=== PATIENT | female | born 1965 | race Caucasian/White ===

== ENCOUNTER 2019-08-21 15:58 | Emergency (ER) | payer MEDICAID, SELFPAY ==
[2019-08-21 16:05] VITALS: BMI 34.5
--- NOTE | 2019-08-21 16:09 | ECG_ITS ---
[facility] Test Date: 2019-08-21 Pat Name: Alaina Aguirre Department: Room: Gender: Female Director Learning And Development: : 1965 Requested By: Nick Manzano Order Number: [id number] Little MD: Tania Ruvalcaba M.D. Measurements Intervals [place] Rate: 54 P: 56 DC: 216 QRS: 33 QRSD: 100 T: 50 QT: 383 QTc: 365 Interpretive Statements SINUS BRADYCARDIA WITH SINUS ARRHYTHMIA WITH FIRST DEGREE AV BLOCK POSSIBLE RIGHT VENTRICULAR CONDUCTION DELAY [RSR (QR) IN V1/V2] Compared to ECG 05/18/2014 17:39:59 No significant changes Electronically Signed On 08-22-2019 17:10:15 CDT by Tania Ruvalcaba M.D. [email or web address] county [email or web address]/[id number] f
[2019-08-21 16:10] VITALS: BP 146/97; PULSE 60; RESP 18; TEMP 36.6; O2SAT 99
--- NOTE | 2019-08-21 17:14 | W.ED.CHESTPA ---
Documented by User: Nick Craig DO 08/22/19 14:31 HPI - Chest Pain General: Chief Complaint: Chest Pain Stated Complaint: cp Time Seen by Provider: 08/21/19 16:09 History of Present Illness: HPI narrative: 54-year-old female presents to the ER complaining of chest pain that started yesterday's been not really been exertional she had been moving some boards around the house is very reproducible with palpation along the left side of her sternal border she is slightly short of breath. She cannot recall any other issues she has no known history of coronary artery disease she is not previously had any chest pain with exertion. complaint: chest pain Onset (ago): day(s) (4) Timing of current episode: constant Prior episodes: No Onset: during rest Pain location: left chest and parasternal Pain radiation: none Severity: moderate Quality: sharp Relieving factors: rest Exacerbating factors: palpation (Pain is completely reproducible with palpation along the upper portion of the sternum and the right sternal border) Associated symptoms: Reports no associated symptoms; Deny abdominal pain, dyspnea, fever(s), nausea or vomiting Treatment prior to arrival: none Review of Systems Const: Denies: fever(s), chills, body aches, change in appetite, fatigue or malaise ENMT: Denies: throat pain, ear or mastoid pain, nasal discharge or nasal congestion Card: Denies: chest pain, edema, dyspnea on exertion or orthopnea Resp: Denies: dyspnea, productive cough or non-productive cough GI: Denies: abdominal pain, nausea, vomiting, hematemesis, coffee ground emesis, diarrhea, constipation, bloating, hematochezia or melena : Denies: flank pain, difficulty voiding, dysuria, urinary frequency or urinary urgency Skin/Breast: Denies: rash or pruritus PFSH ED PFSH: Medical History (Updated 08/21/19 @ 18:44 by Ale David MD) Closed left forearm fracture Diabetes mellitus Osteoarthritis Surgical History (Updated 08/21/19 @ 17:18 by Nick Craig DO) H/O tubal ligation H/O: hysterectomy History of cholecystectomy Hx of appendectomy Social History Smoking and tobacco status: current every day smoker Physical Exam Const: COMMON NORMALS: no acute distress GENERAL APPEARANCE: cooperative and comfortable ORIENTATION/CONSCIOUSNESS: Yes awake, Yes oriented to person, Yes oriented to place and Yes oriented to time HENMT: COMMON NORMALS: normocephalic, atraumatic, hearing grossly normal bilaterally, external ears normal, EAC's normal, TM's normal bilaterally, Normal nasal mucous membranes and turbinates present, moist oral mucous membranes and oropharynx normal HEAD & SCALP: normocephalic and atraumatic NOSE: Normal nasal mucous membranes and turbinates present EXTERNAL EAR: Yes external ears normal EXTERNAL AUDITORY CANAL: EAC's normal TYMPANIC MEMBRANE: TM's normal bilaterally Eye: COMMON NORMALS: Equal, round and reactive pupils present, EOMs intact bilaterally, conjunctivae normal and no scleral icterus CONJUNCTIVA: Yes conjunctivae normal PUPIL: Yes Equal, round and reactive pupils present Neck/C-Spine: COMMON NORMALS: full ROM, no lymphadenopathy, supple and no JVD Lymph: LYMPHATIC: no lymphadenopathy noted and no lymphedema noted Chest: CHEST: Yes localized rib tenderness with anteroposterior compression (Right side of the upper sternum and sternum itself reproducible pain re-creating the pain that precipitated today's visit) Resp: COMMON NORMALS: normal respiratory effort, No retractions, No use of accessory muscles and clear to auscultation bilaterally AUSCULTATION: clear to auscultation bilaterally Cardio: COMMON NORMALS: no JVD, regular rate, regular rhythm and No murmurs present (Cardio) RATE: regular rate RHYTHM: regular rhythm GI: COMMON NORMALS: Soft to palpation and No hepatosplenomegaly present AUSCULTATION: Yes normoactive bowel sounds PALPATION: Yes Soft to palpation, No Tenderness to palpation present (GI), No Guarding due to palpation present (GI) and Yes No hepatosplenomegaly present Extremity: COMMON NORMALS: normal to inspection, capillary refill normal, no clubbing, cyanosis or edema, no calf tenderness and no pedal edema Neuro: SENSORIUM/ORIENTATION: Yes oriented to person, Yes oriented to place and Yes oriented to time Skin: COMMON NORMALS: no rashes or lesions noted GENERAL SKIN EXAM: no rashes or lesions noted Course Vital Signs: Vital signs: Vital Signs Temperature 98 F 08/21/19 16:10 Pulse Rate 70 08/21/19 18:52 Respiratory Rate 14 08/21/19 18:52 Blood Pressure 136/81 08/21/19 18:52 Pulse Oximetry 98 08/21/19 18:52 MDM - Chest Pain MDM Narrative: Medical decision making narrative: Care turned over to Dr. David at change of shift Lab Data: Labs: Lab Results 08/21/19 08/21/19 08/21/19 Range/Units 17:20 17:20 17:20 WBC (4.0-10.0) 10^3/ uL RBC (4.1-5.3) 10^6/u L Hgb (11.5-15.3) g/dL Hct (37.0-47.0) % MCV (81-99) fL MCH (28.0-34.0) pg MCHC (30.0-36.0) g/dL RDW (12.1-15.1) % Plt Count (130-400) 10^3/c mm MPV (7.4-10.4) fL Neut % (Auto) % Lymph % (Auto) % [place] % (Auto) % Eos % (Auto) % Baso % (Auto) % Neut # (Auto) (1.8-7.7) 10^3/u L Lymph # (Auto) (0.8-4.8) 10^3/u L [place] # (Auto) (0.2-0.9) 10^3/u L Eos # (Auto) (0.0-0.8) 10^3/u L Baso # (Auto) (0.0-0.1) 10^3/u L Nucleated RBC % (a uto) % Nucleated RBCs # /100WBC PT 12.80 (10.5-13.3) SECO NDS INR 0.93 (0.8-1.2) APTT (23.9-36.7) SECO NDS Sodium 138 (136-145) mmol/L Potassium 4.2 (3.5-5.1) mmol/L Chloride 102 (98-107) mmol/L Carbon Dioxide 24 (22-29) mmol/L Anion Gap 16.2 (5-19) BUN 14 (6-20) mg/dL Creatinine 0.7 (0.5-0.9) mg/dL GFR Calculation 86.9 L (90-130) mL/min Glucose 95 (65-115) mg/dL Calculated Osmolal ity 282 L (285-295) mOsm/k g Calcium 9.7 (8.5-10.5) mg/dL Total Bilirubin 0.4 (0.15-1.2) mg/dL AST 22 (0-32) U/L ALT 28 (0-33) U/L Alkaline Phosphata se 102 (35-105) IU/L Troponin T Baselin e 6 (0-10) ng/L Total Protein 7.4 (6.6-8.7) g/dL Albumin 4.3 (3.5-5.2) g/dL Globulin 3.1 (1.3-4.6) g/dL 08/21/19 08/21/19 Range/Units 17:20 17:20 WBC 9.2 (4.0-10.0) 10^3/ uL RBC 4.59 (4.1-5.3) 10^6/u L Hgb 13.3 (11.5-15.3) g/dL Hct 43.1 (37.0-47.0) % MCV 93.9 (81-99) fL MCH 29.0 (28.0-34.0) pg MCHC 30.9 (30.0-36.0) g/dL RDW 13.4 (12.1-15.1) % Plt Count 198 (130-400) 10^3/c mm MPV 11.6 H (7.4-10.4) fL Neut % (Auto) 60.8 % Lymph % (Auto) 28.3 % [place] % (Auto) 5.7 % Eos % (Auto) 4.2 % Baso % (Auto) 0.8 % Neut # (Auto) 5.6 (1.8-7.7) 10^3/u L Lymph # (Auto) 2.6 (0.8-4.8) 10^3/u L [place] # (Auto) 0.5 (0.2-0.9) 10^3/u L Eos # (Auto) 0.4 (0.0-0.8) 10^3/u L Baso # (Auto) 0.1 (0.0-0.1) 10^3/u L Nucleated RBC % (a uto) 0 % Nucleated RBCs # 0.0 /100WBC PT (10.5-13.3) SECO NDS INR (0.8-1.2) APTT 29.8 (23.9-36.7) SECO NDS Sodium (136-145) mmol/L Potassium (3.5-5.1) mmol/L Chloride (98-107) mmol/L Carbon Dioxide (22-29) mmol/L Anion Gap (5-19) BUN (6-20) mg/dL Creatinine (0.5-0.9) mg/dL GFR Calculation (90-130) mL/min Glucose (65-115) mg/dL Calculated Osmolal ity (285-295) mOsm/k g Calcium (8.5-10.5) mg/dL Total Bilirubin (0.15-1.2) mg/dL AST (0-32) U/L ALT (0-33) U/L Alkaline Phosphata se (35-105) IU/L Troponin T Baselin e (0-10) ng/L Total Protein (6.6-8.7) g/dL Albumin (3.5-5.2) g/dL Globulin (1.3-4.6) g/dL Discharge Plan Discharge Patient Disposition: Home, Self-Care Clinical Impression: Atypical chest pain Condition: Stable Prescriptions: New Naprosyn 500 mg tablet 500 mg PO BID PRN (Reason: pain) Qty: 20 RF: 0 No Action [place] 10-325 mg Tablet 1 tab PO TID PRN (Reason: Pain) RF: 0 gabapentin 100 mg Capsule 100 mg PO BID RF: 0 Januvia 25 mg Tablet 25 mg PO DAILY RF: 0 Discharge Orders: Discharge Order (Routine); Ordered 08/21/19 Ordered By: Ale David Discharge Diet: Advance as tolerated Discharge Activity: Resume usual activity Patient Instructions: Chest Pain (ED) Discharge Date/Time: 08/21/19 18:53 Coding Level of Care Code ED Data Collection Technician for Chg Fwd Exam Comprehensive Documented by User: Ale David MD 08/21/19 18:58 HPI - Chest Pain General: Chief Complaint: Chest Pain Stated Complaint: cp Time Seen by Provider: 08/21/19 16:09 PFSH ED PFSH: Medical History (Updated 08/21/19 @ 18:44 by Ale David MD) Closed left forearm fracture Diabetes mellitus Osteoarthritis Surgical History (Updated 08/21/19 @ 17:18 by Nick Craig DO) H/O tubal ligation H/O: hysterectomy History of cholecystectomy Hx of appendectomy Social History Smoking and tobacco status: current every day smoker Course Vital Signs: Vital signs: Vital Signs Temperature 98 F 08/21/19 16:10 Pulse Rate 70 08/21/19 18:52 Respiratory Rate 14 08/21/19 18:52 Blood Pressure 136/81 08/21/19 18:52 Pulse Oximetry 98 08/21/19 18:52 MDM - Chest Pain MDM Narrative: Medical decision making narrative: I took patient over from Dr. Martell. Patient does have point tenderness on exam consistent with chest wall pain. Patient initial troponin here is negative and x-ray is normal as well. Will place patient on Naprosyn and she is stable for discharge. She is currently pain-free and has no signs of pulmonary embolism. She has no signs of cardiac cause. She is to follow-up with her primary care doctor in 3 to 5 days return if worsening. Lab Data: Labs: Lab Results 08/21/19 08/21/19 08/21/19 Range/Units 17:20 17:20 17:20 WBC (4.0-10.0) 10^3/ uL RBC (4.1-5.3) 10^6/u L Hgb (11.5-15.3) g/dL Hct (37.0-47.0) % MCV (81-99) fL MCH (28.0-34.0) pg MCHC (30.0-36.0) g/dL RDW (12.1-15.1) % Plt Count (130-400) 10^3/c mm MPV (7.4-10.4) fL Neut % (Auto) % Lymph % (Auto) % [place] % (Auto) % Eos % (Auto) % Baso % (Auto) % Neut # (Auto) (1.8-7.7) 10^3/u L Lymph # (Auto) (0.8-4.8) 10^3/u L [place] # (Auto) (0.2-0.9) 10^3/u L Eos # (Auto) (0.0-0.8) 10^3/u L Baso # (Auto) (0.0-0.1) 10^3/u L Nucleated RBC % (a uto) % Nucleated RBCs # /100WBC PT 12.80 (10.5-13.3) SECO NDS INR 0.93 (0.8-1.2) APTT (23.9-36.7) SECO NDS Sodium 138 (136-145) mmol/L Potassium 4.2 (3.5-5.1) mmol/L Chloride 102 (98-107) mmol/L Carbon Dioxide 24 (22-29) mmol/L Anion Gap 16.2 (5-19) BUN 14 (6-20) mg/dL Creatinine 0.7 (0.5-0.9) mg/dL GFR Calculation 86.9 L (90-130) mL/min Glucose 95 (65-115) mg/dL Calculated Osmolal ity 282 L (285-295) mOsm/k g Calcium 9.7 (8.5-10.5) mg/dL Total Bilirubin 0.4 (0.15-1.2) mg/dL AST 22 (0-32) U/L ALT 28 (0-33) U/L Alkaline Phosphata se 102 (35-105) IU/L Troponin T Baselin e 6 (0-10) ng/L Total Protein 7.4 (6.6-8.7) g/dL Albumin 4.3 (3.5-5.2) g/dL Globulin 3.1 (1.3-4.6) g/dL 08/21/19 08/21/19 Range/Units 17:20 17:20 WBC 9.2 (4.0-10.0) 10^3/ uL RBC 4.59 (4.1-5.3) 10^6/u L Hgb 13.3 (11.5-15.3) g/dL Hct 43.1 (37.0-47.0) % MCV 93.9 (81-99) fL MCH 29.0 (28.0-34.0) pg MCHC 30.9 (30.0-36.0) g/dL RDW 13.4 (12.1-15.1) % Plt Count 198 (130-400) 10^3/c mm MPV 11.6 H (7.4-10.4) fL Neut % (Auto) 60.8 % Lymph % (Auto) 28.3 % [place] % (Auto) 5.7 % Eos % (Auto) 4.2 % Baso % (Auto) 0.8 % Neut # (Auto) 5.6 (1.8-7.7) 10^3/u L Lymph # (Auto) 2.6 (0.8-4.8) 10^3/u L [place] # (Auto) 0.5 (0.2-0.9) 10^3/u L Eos # (Auto) 0.4 (0.0-0.8) 10^3/u L Baso # (Auto) 0.1 (0.0-0.1) 10^3/u L Nucleated RBC % (a uto) 0 % Nucleated RBCs # 0.0 /100WBC PT (10.5-13.3) SECO NDS INR (0.8-1.2) APTT 29.8 (23.9-36.7) SECO NDS Sodium (136-145) mmol/L Potassium (3.5-5.1) mmol/L Chloride (98-107) mmol/L Carbon Dioxide (22-29) mmol/L Anion Gap (5-19) BUN (6-20) mg/dL Creatinine (0.5-0.9) mg/dL GFR Calculation (90-130) mL/min Glucose (65-115) mg/dL Calculated Osmolal ity (285-295) mOsm/k g Calcium (8.5-10.5) mg/dL Total Bilirubin (0.15-1.2) mg/dL AST (0-32) U/L ALT (0-33) U/L Alkaline Phosphata se (35-105) IU/L Troponin T Baselin e (0-10) ng/L Total Protein (6.6-8.7) g/dL Albumin (3.5-5.2) g/dL Globulin (1.3-4.6) g/dL Imaging Data^: CXR: Attestation: I personally reviewed and interpreted this imaging study as follows: My impression: no acute abnormality Discharge Plan Discharge Patient Disposition: Home, Self-Care Clinical Impression: Atypical chest pain Condition: Stable Prescriptions: New Naprosyn 500 mg tablet 500 mg PO BID PRN (Reason: pain) Qty: 20 RF: 0 No Action [place] 10-325 mg Tablet 1 tab PO TID PRN (Reason: Pain) RF: 0 gabapentin 100 mg Capsule 100 mg PO BID RF: 0 Januvia 25 mg Tablet 25 mg PO DAILY RF: 0 Discharge Orders: Discharge Order (Routine); Ordered 08/21/19 Ordered By: Ale David Discharge Diet: Advance as tolerated Discharge Activity: Resume usual activity Patient Instructions: Chest Pain (ED) Discharge Date/Time: 08/21/19 18:53 Coding Level of Care Code ED Data Collection Technician for Hayden Fwd Exam Comprehensive
[2019-08-21] MEDS: ketorolac 30 mg/mL INJ IVP (17:25)
[2019-08-21] MEDS: aspirin 81 mg Chew Tablet 324 MG PO (17:25)
[2019-08-21 17:49] LABS: Alanine Aminotransferase 28 U/L (0-33); Albumin Level 4.3 g/dL (3.5-5.2); Alkaline Phosphatase 102 IU/L (35-105); Anion Gap 16.2 (5-19); Aspartate Amino Transferase 22 U/L (0-32); Blood Urea Nitrogen 14 mg/dL (6-20); Calcium 9.7 mg/dL (8.5-10.5); Carbon Dioxide 24 mmol/L (22-29); Chloride 102 mmol/L (98-107); Globulin 3.1 g/dL (1.3-4.6); Glomerular Filtration Rate 86.9 mL/min (90-130); Glucose 95 mg/dL (65-115); Osmolality Calculated 282 mOsm/kg (285-295); Potassium 4.2 mmol/L (3.5-5.1); Sodium 138 mmol/L (136-145); Total Bilirubin 0.4 mg/dL (0.15-1.2); Total Protein 7.4 g/dL (6.6-8.7)
[2019-08-21 17:56] LABS: Troponin(5th) Baseline 6 ng/L (0-10)
[2019-08-21 17:57] LABS: INR 0.93 (0.8-1.2); Partial Thromboplastin Time 29.8 SECONDS (23.9-36.7)
--- NOTE | 2019-08-21 18:09 | ECG_ITS ---
[facility] Test Date: 2019-08-21 Pat Name: Alaina Aguirre Department: Room: Gender: Female Photography Editor: : 1965 Requested By: Nick Manzano Order Number: [id number] Little MD: Tania Ruvalcaba M.D. Measurements Intervals [place] Rate: 47 P: 51 [place]: 222 QRS: 36 QRSD: 93 T: 45 QT: 409 QTc: 363 Interpretive Statements SINUS BRADYCARDIA WITH FIRST DEGREE AV BLOCK POSSIBLE RIGHT VENTRICULAR CONDUCTION DELAY [RSR (QR) IN V1/V2] Compared to ECG 08/21/2019 16:14:49 Sinus arrhythmia no longer present Electronically Signed On 08-22-2019 17:13:10 CDT by Tania Ruvalcaba M.D. [id number] f
[2019-08-21 18:16] LABS: Basophils # 0.1 10^3/uL (0.0-0.1); Basophils % 0.8 %; Eosinophils # 0.4 10^3/uL (0.0-0.8); Eosinophils % 4.2 %; Hematocrit 43.1 % (37.0-47.0); Hemoglobin 13.3 g/dL (11.5-15.3); Lymphocytes # 2.6 10^3/uL (0.8-4.8); Lymphocytes % 28.3 %; Mean Corpuscular HGB Conc 30.9 g/dL (30.0-36.0); Mean Corpuscular Volume 93.9 fL (81-99); Mean Platelet Volume 11.6 fL (7.4-10.4); Monocytes # 0.5 10^3/uL (0.2-0.9); Monocytes % 5.7 %; Neutrophils # 5.6 10^3/uL (1.8-7.7); Neutrophils % 60.8 %; Nucleated Red Blood Cells % 0 %; Platelet Count 198 10^3/cmm (130-400); Red Blood Count 4.59 10^6/uL (4.1-5.3); Red Cell Distribution Width 13.4 % (12.1-15.1); White Blood Count 9.2 10^3/uL (4.0-10.0)
[2019-08-21 18:20] VITALS: BP 146/77; PULSE 53; RESP 16; O2SAT 95
[2019-08-21 18:30] VITALS: BP 137/70; PULSE 51; RESP 15; O2SAT 95
--- NOTE | 2019-08-21 18:48 | XR_ITS ---
WS: [id number] PORTABLE CHEST HISTORY: cp COMPARISON: 05/18/2014 Hyperinflated lungs with emphysema. No pneumonia. Normal vasculature. No pleural effusion or pneumoth orax. Cardiac size: Normal. Mediastinum/Aorta: Normal mediastinum. No osseous abnormality seen. XR/XR chest 1V portable [id number] IMPRESSION: Chronic emphysema with no acute cardiopulmonary disease.
[2019-08-21 18:52] VITALS: BP 136/81; PULSE 70; RESP 14; O2SAT 98
== END 2019-08-21 18:53 | disposition home or self-care (01) ==
PROVIDERS: Family Medicine; Emergency Provider Emergency Medicine
DX: R07.89 Other chest pain (principal); E11.9 Type 2 diabetes mellitus without complications; F17.210 Nicotine dependence, cigarettes, uncomplicated
CPT/HCPCS: 12345; 36415; 71045; 80053; 84484; 85025; 85610; 85730; 93005; 96374; 96375; 99283; 99284; J1885

== ENCOUNTER → 2020-05-14 11:18 | Outpatient (BNVA) | payer MEDICAID, SELFPAY | PROVIDERS: PCP Nurse Practitioner; Visit Provider Nurse Practitioner Family | DX: E11.40 Type 2 diabetes mellitus with diabetic neuropathy, unspecified (principal); Z76.89 Persons encountering health services in other specified circumstances; M19.91 Primary osteoarthritis, unspecified site; R03.0 Elevated blood-pressure reading, without diagnosis of hypertension; Z68.35 Body mass index [BMI] 35.0-35.9, adult | CPT/HCPCS: 83036 ==

== ENCOUNTER → 2020-07-14 09:27 | Outpatient (BNVA) | payer MEDICAID, SELFPAY | PROVIDERS: PCP Nurse Practitioner; Visit Provider Nurse Practitioner Family | DX: E11.40 Type 2 diabetes mellitus with diabetic neuropathy, unspecified (principal); R03.0 Elevated blood-pressure reading, without diagnosis of hypertension | CPT/HCPCS: 80053; 80061; 84439; 84443; 85025 ==

== ENCOUNTER → 2020-12-29 09:52 | Outpatient (BNVA) | payer MEDICAID, SELFPAY | PROVIDERS: PCP Nurse Practitioner; Visit Provider Nurse Practitioner Family | DX: M24.849 Other specific joint derangements of unspecified hand, not elsewhere classified (principal); M25.549 Pain in joints of unspecified hand; E11.40 Type 2 diabetes mellitus with diabetic neuropathy, unspecified; E78.5 Hyperlipidemia, unspecified | CPT/HCPCS: 73130; 80053; 80061; 83036 ==

== ENCOUNTER → 2021-04-09 09:28 | Outpatient (BNVA) | payer MEDICAID, SELFPAY | PROVIDERS: PCP Nurse Practitioner Family; Visit Provider Nurse Practitioner Family | DX: E11.9 Type 2 diabetes mellitus without complications (principal); R74.8 Abnormal levels of other serum enzymes | CPT/HCPCS: 80053; 83036 ==

== ENCOUNTER → 2021-06-29 13:55 | Outpatient (BNVA) | payer MEDICAID, SELFPAY | PROVIDERS: PCP Nurse Practitioner Family; Visit Provider Nurse Practitioner Family | DX: R74.8 Abnormal levels of other serum enzymes (principal); E11.9 Type 2 diabetes mellitus without complications | CPT/HCPCS: 80053; 80061 ==

== ENCOUNTER → 2021-07-09 08:54 | Outpatient (BNVA) | payer MEDICAID, SELFPAY | PROVIDERS: PCP Nurse Practitioner Family; Visit Provider Nurse Practitioner Family | DX: E11.9 Type 2 diabetes mellitus without complications (principal) | CPT/HCPCS: 83036 ==

== ENCOUNTER → 2021-09-22 15:49 | Outpatient (BNVA) | payer MEDICAID, SELFPAY | PROVIDERS: PCP Nurse Practitioner Family; Visit Provider Internal Medicine | DX: R74.8 Abnormal levels of other serum enzymes (principal); B19.20 Unspecified viral hepatitis C without hepatic coma; E88.81 Metabolic syndrome and other insulin resistance | CPT/HCPCS: 80053; 83550; 87522 ==

== ENCOUNTER 2021-11-11 16:53 | Outpatient (CLI) | payer MEDICAID, SELFPAY ==
--- NOTE | 2021-11-11 17:15 | US_ITS ---
WS: [id number] Gallbladder and right upper quadrant ultrasound, 11/11/2021 Clinical Data: Increased LFT Comparison: CT abdomen, 05/12/2018. Findings: The gallbladder is absent The common bile duct is 0.6 cm and there are no intrahepatic ductal abnorma lities. Liver shows no cysts, masses or dilated intrahepatic ducts. The liver measures 17.90 cm and shows a m inimal coarse echotexture. The pancreas is obscured by overlying bowel gas but no cyst, pseudocyst, or evidence of pancreatitis is noted. Right kidney measures 11.3 cm and no cyst, masses or hydronephrosis can be seen. The aorta and inferior vena cava show no vascular abnormalities. US/US liver [id number] Impression: 1. Cholecystectomy. 2. Hepatomegaly.
== END 2021-11-11 16:54 | disposition home or self-care (01) ==
PROVIDERS: PCP Nurse Practitioner Family; Visit Provider Internal Medicine
DX: R74.8 Abnormal levels of other serum enzymes (principal); R16.0 Hepatomegaly, not elsewhere classified; Z90.49 Acquired absence of other specified parts of digestive tract
CPT/HCPCS: 76705

== ENCOUNTER → 2022-02-08 15:16 | Outpatient (BNVA) | payer MEDICAID, SELFPAY | PROVIDERS: PCP Nurse Practitioner Family; Visit Provider Nurse Practitioner Family | DX: R50.9 Fever, unspecified (principal) | CPT/HCPCS: 87400 ==

== ENCOUNTER → 2022-05-10 13:41 | Outpatient (BNVA) | payer MEDICAID, SELFPAY | PROVIDERS: PCP Nurse Practitioner Family; Visit Provider Nurse Practitioner Family | DX: E11.40 Type 2 diabetes mellitus with diabetic neuropathy, unspecified (principal); R74.8 Abnormal levels of other serum enzymes; Z68.36 Body mass index [BMI] 36.0-36.9, adult; R03.0 Elevated blood-pressure reading, without diagnosis of hypertension | CPT/HCPCS: 80053; 80061; 82043; 83036; 84443 ==

== ENCOUNTER → 2022-09-02 09:06 | Outpatient (BNVA) | payer MEDICAID, SELFPAY | PROVIDERS: PCP Nurse Practitioner Family; Visit Provider Nurse Practitioner Family | DX: E11.40 Type 2 diabetes mellitus with diabetic neuropathy, unspecified (principal); R74.8 Abnormal levels of other serum enzymes | CPT/HCPCS: 83036 ==

== ENCOUNTER → 2022-12-02 09:04 | Outpatient (BNVA) | payer MEDICAID, SELFPAY | PROVIDERS: PCP Nurse Practitioner Family; Visit Provider Nurse Practitioner Family | DX: E11.40 Type 2 diabetes mellitus with diabetic neuropathy, unspecified (principal); Z23 Encounter for immunization | CPT/HCPCS: 80053; 80061; 83036 ==

== ENCOUNTER 2023-02-09 14:36 | Outpatient (CLI) | payer MEDICAID, SELFPAY ==
--- NOTE | 2023-02-09 15:00 | MM_ITS ---
WS: [id number] BILATERAL 3D TOMOSYNTHESIS DIGITAL SCREENING MAMMOGRAPHY WITH CAD CLINICAL INFORMATION: Z00.00 - Encounter for general adult medical examination ... HISTORY: Screening mammogram. No current complaints. COMPARISON: 2020 TECHNIQUE: Bilateral CC and MLO views. FINDINGS: Scattered fibroglandular densities bilaterally. No suspicious focal mass, asymmetry, calcifications, or architectural distortion. No evidence of malignancy. Punctate and lucent centered calcifications. IMPRESSION: MM/[place] [address] BI-RADS: 2-Benign FOLLOW UP: 1 Year Follow-up Recommend return to annual screening mammography.
== END 2023-02-09 14:37 | disposition home or self-care (01) ==
LOC: MOBLMAM 14:40
PROVIDERS: PCP Nurse Practitioner Family; Visit Provider Nurse Practitioner Family
DX: Z12.31 Encounter for screening mammogram for malignant neoplasm of breast (principal)
CPT/HCPCS: 77063; 77067

== ENCOUNTER → 2023-03-04 09:05 | Outpatient (BNVA) | payer MEDICAID, SELFPAY | PROVIDERS: PCP Nurse Practitioner Family; Visit Provider Nurse Practitioner Family | DX: E11.40 Type 2 diabetes mellitus with diabetic neuropathy, unspecified; B34.9 Viral infection, unspecified | CPT/HCPCS: 83036 ==

== ENCOUNTER 2023-05-06 15:50 | Emergency (ER) | payer MEDICAID, SELFPAY ==
[2023-05-06 15:50] VITALS: BP 183/80; PULSE 63; RESP 16; TEMP 36.6; O2SAT 98
--- NOTE | 2023-05-06 15:52 | ECG_ITS ---
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 Measurements Intervals [place] Rate: 62 P: 0 SC: 0 QRS: 31 QRSD: 102 T: 60 QT: 371 QTc: 378 Interpretive Statements SUPRAVENTRICULAR RHYTHM POSSIBLE RIGHT VENTRICULAR CONDUCTION DELAY [RSR (QR) IN V1/V2] ABNORMAL RHYTHM ECG Compared to ECG 08/21/2019 18:25:01 Supraventricular rhythm now present Sinus bradycardia no longer present First degree AV block no longer present Electronically Signed On 05-06-2023 17:44:28 SLOT FLOORPERSON by Lynnette Soto M.D. [id number]
--- NOTE | 2023-05-06 15:58 | XRR_ITS ---
PROCEDURE INFORMATION: Exam: XR Chest Exam date and time: 05/06/2023 4:02 PM Age: 57 years old Clinical indication: Pain; Angina pectoris; Additional info: Chest pain TECHNIQUE: Imaging protocol: Radiologic exam of the chest. Views: 1 view. COMPARISON: CR XR chest 1V portable [id number] 08/21/2019 6:48 PM FINDINGS: Lungs: Unremarkable. No consolidation. Pleural spaces: Unremarkable. No pleural effusion. No pneumothorax. Heart/Mediastinum: Unremarkable. No cardiomegaly. Bones/joints: Unremarkable. XR/XR chest 1V portable [id number] IMPRESSION: No acute findings.
--- NOTE | 2023-05-06 16:31 | W.ED.CHESTPA ---
Documented by User: ANN Lyn 05/06/23 16:36 HPI - Chest Pain General: Chief Complaint: Chest Pain Stated Complaint: chest pains Time Seen by Provider: 05/06/23 15:58 Source: patient Mode of arrival: ambulatory Limitations: no limitations History of Present Illness: Patient is a 57-year-old female with a history of chronic smoking and diabetes who presents to ED today with a complaint of intermittent left-sided chest pain that began around 4 AM this morning when she awoke from sleep. Patient states she has had approximately 15-20 episodes of sharp/shooting/stabbing pain in the left side of her chest that radiates into her left shoulder over the past 12 hours. She states episode lasted approximately a minute or so before subsiding on their own. No alleviating or worsening factors to her discomfort. No known cardiac disease. She is an everyday smoker. Denies any significant shortness of breath or difficulty breathing. No fevers. No recent illness. She does arrive hypertensive. She states blood pressure is normally controlled. MD complaint: chest pain Onset (ago): hour(s) Timing of current episode: episodic Prior episodes: No Onset: during rest Pain location: left chest Pain radiation: left shoulder Severity: moderate Quality: sharp and shooting Relieving factors: nothing Exacerbating factors: nothing Associated symptoms: Deny abdominal pain, dyspnea, fever(s), nausea, palpitations, syncope or vomiting Treatment prior to arrival: none Risk Factors: Coronary artery disease risk factors: smoking history Thoracic aortic dissection risk factors: none Related Data: On Oral Contraceptives: No Review of Systems Const: Denies: fever(s), chills, body aches, fatigue or malaise Eyes: Denies: floaters or seeing flashes Card: Reports: chest pain; Denies: palpitations, irregular heart rhythm, edema, swelling of feet/ankles, lightheadedness, syncope, pre-syncope, dyspnea on exertion, orthopnea, leg pain with exertion or acrocyanosis Resp: Denies: dyspnea, productive cough, non-productive cough, wheezing, hemoptysis or chest congestion GI: Denies: abdominal pain, nausea or vomiting Musc: Denies: neck pain or back pain Skin/Breast: Denies: rash Neuro: Denies: headache(s), numbness in extremities, weakness in extremities, sensory changes or dizziness FOR[facility]LY [facility], LAT[facility] ED PFSH: Medical History Closed left forearm fracture Osteoarthritis Diabetes mellitus Surgical History H/O tubal ligation Hx of appendectomy H/O: hysterectomy History of cholecystectomy Social History Smoking and tobacco/nicotine status: current every day tobacco/nicotine user cigarettes Packs smoked per day: 1 Alcohol intake: never Physical Exam Const: COMMON NORMALS: no acute distress, patient oriented x3, no limitations, alert and well nourished NUTRITIONAL APPEARANCE: overweight ORIENTATION/CONSCIOUSNESS: Yes awake, Yes oriented to person, Yes oriented to place and Yes oriented to time HENMT: COMMON NORMALS: normocephalic and atraumatic HEAD & SCALP: normal to inspection, normocephalic and atraumatic Neck/C-Spine: COMMON NORMALS: full ROM, no lymphadenopathy, supple, no meningeal signs and no JVD Chest: COMMONS NORMALS: normal inspection of the chest and normal palpation of entire chest wall Resp: COMMON NORMALS: normal respiratory effort and clear to auscultation bilaterally AUSCULTATION: clear to auscultation bilaterally Cardio: COMMON NORMALS: no JVD, regular rate and regular rhythm RATE: regular rate RHYTHM: regular rhythm GI: COMMON NORMALS: Normal to inspection, nondistended, normoactive bowel sounds present, Soft to palpation, non-tender, No hepatosplenomegaly present and no masses PALPATION: Yes Soft to palpation and Yes No hepatosplenomegaly present Extremity: COMMON NORMALS: normal to inspection, full ROM, capillary refill normal, no clubbing, cyanosis or edema, no calf tenderness and no pedal edema GENERAL: Yes normal exam except as noted Neuro: COMMON NORMALS: patient oriented x3, moves all extremities, no focal motor deficits, no sensory deficits noted and gait normal SENSORIUM/ORIENTATION: Yes alert, Yes oriented to person, Yes oriented to place and Yes oriented to time MENINGEAL SIGNS: Yes no meningeal signs Skin: COMMON NORMALS: no rashes or lesions noted GENERAL SKIN EXAM: no rashes or lesions noted Course Vital Signs: Vital signs: Vital Signs Temperature 97.8 F 05/06/23 15:50 Pulse Rate 60 05/06/23 17:00 Respiratory Rate 18 03/08/24 17:00 Blood Pressure 131/79 05/06/23 17:00 Pulse Oximetry 99 05/06/23 17:00 Oxygen Delivery Me thod Room Air 05/06/23 15:50 MDM - Chest Pain Lab Data 05/06/23 16:25 05/06/23 16:25 Radiology Impressions Chest X-Ray 05/06/23 15:58 IMPRESSION: No acute findings. Laboratory Results WBC 7.93 10^3/uL (3.29-11.43) 05/06/23 16:25 RBC 4.76 10^6/uL (3.85-5.65) 05/06/23 16:25 Hgb 13.90 g/dL (11.27-16.99) 05/06/23 16:25 Hct 43.0 % (36-47) 05/06/23 16:25 MCV 90.3 fl (85-98) 05/06/23 16:25 MCH 29.2 pg (27-33) 05/06/23 16:25 MCHC 32.3 g/dL (30-55) 05/06/23 16:25 RDW 13.2 % (12.1-15.1) 05/06/23 16:25 Plt Count 206 10^3/cmm (157-399) 05/06/23 16:25 MPV 10.6 fL (7.4-10.4) H 05/06/23 16:25 Neut % (Auto) 57.8 % 05/06/23 16:25 Lymph % (Auto) 35.1 % 05/06/23 16:25 Erath % (Auto) 5.0 % 05/06/23 16:25 Eos % (Auto) 1.5 % 05/06/23 16:25 Baso % (Auto) 0.5 % 05/06/23 16:25 Neut # (Auto) 4.58 10^3/uL (1.8-7.7) 05/06/23 16:25 Lymph # (Auto) 2.8 10^3/uL (0.8-4.8) 05/06/23 16:25 Erath # (Auto) 0.4 10^3/uL (0.2-0.9) 05/06/23 16:25 Eos # (Auto) 0.1 10^3/uL (0.0-0.8) 05/06/23 16:25 Baso # (Auto) 0.0 10^3/uL (0.0-0.1) 05/06/23 16:25 Nucleated RBC % (auto) 0 % 05/06/23 16:25 Nucleated RBCs # 0.0 /100WBC 05/06/23 16:25 Sodium 140 mmol/L (136-145) 05/06/23 16:25 Potassium 4.1 mmol/L (3.5-5.1) 05/06/23 16:25 Chloride 102 mmol/L (98-107) 05/06/23 16:25 Carbon Dioxide 25 mmol/L (22-29) 05/06/23 16:25 Anion Gap 17.1 (5-19) 05/06/23 16:25 BUN 16 mg/dL (6-20) 05/06/23 16:25 Creatinine 0.7 mg/dL (0.5-0.9) 05/06/23 16:25 GFR Calculation 85.9 mL/min (90-130) L 05/06/23 16:25 Glucose 100 mg/dL (65-115) 05/06/23 16:25 Calculated Osmolality 291 mOsm/kg (285-295) 05/06/23 16:25 Calcium 9.2 mg/dL (8.5-10.5) 05/06/23 16:25 Total Bilirubin 0.3 mg/dL (0.15-1.2) 05/06/23 16:25 AST 20 U/L (0-32) 05/06/23 16:25 ALT 27 U/L (0-33) 05/06/23 16:25 Alkaline Phosphatase 128 U/L (35-105) H 05/06/23 16:25 Troponin T Baseline < 6 ng/L (0-10) 05/06/23 16:25 Total Protein 7.2 g/dL (6.6-8.7) 05/06/23 16:25 Albumin 4.2 g/dL (3.5-5.2) 05/06/23 16:25 Globulin 3.0 g/dL (1.3-4.6) 05/06/23 16:25 Discharge Plan Discharge Patient Disposition: Home Clinical Impression: Atypical chest pain Condition: Stable Prescriptions: No Action clobetasol 0.05 % ointment 1 applic TOPICAL BID Qty: 60 1RF Rx Instructions: Apply to areas on hands and feet BID for 3 weeks then 1 week off and then 2 weeks until follow-up clotrimazole 1 % ointment 1 applic topical BID 14 Days Qty: 56.7 1RF cetirizine [All Day Allergy (cetirizine)] 10 mg tablet 10 mg PO DAILY Qty: 90 3RF Victoza 2-Damián 0.6 mg/0.1 mL (18 mg/3 mL) pen injector 1.8 mg SUBCUT DAILY Qty: 9 11RF (DME) blood-glucose meter [OneTouch Ultra2 Meter] Kit See Rx Instructions .ROUTE .MEDSUPPLY Qty: 1 0RF Rx Instructions: daily albuterol sulfate 90 mcg/actuation HFA aerosol inhaler 2 inh inhalation Q4H PRN (Reason: shortness of breath or wheezing) Qty: 8.5 1RF Anoro Ellipta 62.5-25 mcg/actuation blister with device 1 inh inhalation DAILY Qty: 60 3RF (DME) OneTouch Ultra Test Strip See Rx Instructions .ROUTE .COMPLEX Qty: 100 3RF Dose Instruction: USE TO CHECK BLOOD SUGAR TWICE A DAY Rx Instructions: USE TO CHECK BLOOD SUGAR TWICE A DAY (DME) lancets [OneTouch Delica Plus Lancet] 33 gauge misc See Rx Instructions .ROUTE .COMPLEX Qty: 100 2RF Dose Instruction: USE DIRECTED Rx Instructions: USE DIRECTED (DME) lancets [OneTouch Delica Plus Lancet] 30 gauge misc See Rx Instructions .ROUTE .COMPLEX Qty: 200 0RF Dose Instruction: USE DIRECTED Rx Instructions: USE DIRECTED meloxicam 15 mg tablet See Rx Instructions .ROUTE .COMPLEX Qty: 30 0RF Dose Instruction: TAKE ONE TABLET BY MOUTH DAILY Rx Instructions: TAKE ONE TABLET BY MOUTH DAILY (DME) pen needle, diabetic [TechLITE Pen Needle] 31 gauge x 3/16 needle See Rx Instructions .ROUTE .COMPLEX Qty: 100 0RF Dose Instruction: USE DIRECTED Rx Instructions: USE DIRECTED Januvia 50 mg tablet See Rx Instructions .ROUTE .COMPLEX Qty: 90 3RF Dose Instruction: TAKE ONE TABLET BY MOUTH ONCE DAILY Rx Instructions: TAKE ONE TABLET BY MOUTH ONCE DAILY Discharge Orders: Discharge ED (Routine); Ordered 05/06/23 Ordered By: Maldonado Oliver Referrals: Noa Christine NP [Primary Care Provider] - Discharge Diet: Usual diet Discharge Activity: Increase activity as tolerated Patient Instructions: Chest Pain (ED) Activity Restrictions/Additional Instructions: Please follow-up with your primary care provider early next week as discussed to arrange for further cardiac workup. Follow-up with cardiology. Please return if you develop any recurring chest pain or other concerning symptoms you may have. Sign Out Sign Out Data: Patient Sign Out occurred on 05/06/23 at 17:02. Patient's care was discussed, and care was transferred from ANN Lyn to ANN Tao. Coding Level of Care Code ED Communications Writer for Chg Fwd Documented by User: ANN Tao 05/06/23 17:36 HPI - Chest Pain General: Chief Complaint: Chest Pain Stated Complaint: chest pains Time Seen by Provider: 05/06/23 15:58 [facility]LY [facility] ED PFSH: Medical History Closed left forearm fracture Osteoarthritis Diabetes mellitus Surgical History H/O tubal ligation Hx of appendectomy H/O: hysterectomy History of cholecystectomy Social History Smoking and tobacco/nicotine status: current every day tobacco/nicotine user cigarettes Packs smoked per day: 1 Alcohol intake: never Course Vital Signs: Vital signs: Vital Signs Temperature 97.8 F 05/06/23 15:50 Pulse Rate 60 05/06/23 17:00 Respiratory Rate 18 05/06/23 17:00 Blood Pressure 131/79 05/06/23 17:00 Pulse Oximetry 99 05/06/23 17:00 Oxygen Delivery Me thod Room Air 05/06/23 15:50 MDM - Chest Pain Medical Decision Making This patient was handed over to me at shift change. Patient reportedly has had multiple episodes of shooting left chest pain with radiation to left shoulder since waking up this morning. Upon recheck, patient's vitals remained stable and she states she is currently pain-free. Reexamination of the heart and lungs unremarkable. ECG unremarkable for any acute ST segment changes. Chest x-ray unremarkable for any acute cardiopulmonary process. Her CBC and CMP were both also unremarkable. Baseline troponin returned negative, due to the patient's onset of pain I feel that is unnecessary for her to stay for the 2/6-hour repeats. Due to her negative workup I feel that she is not a candidate for hospital admission. I informed the patient that I want her to follow-up with her primary care provider early next week to discuss her ED visit and set up any further outpatient cardio evaluation. I will also refer her to cardiology. Thoroughly instructed her to return if her symptoms worsen or she develops any new concerning symptoms. Patient agrees with this and will be discharged home. Medical Records I reviewed the patient's medical records. Lab Data I reviewed the patient's lab results. 05/06/23 16:25 05/06/23 16:25 Radiology Impressions Chest X-Ray 05/06/23 15:58 IMPRESSION: No acute findings. Laboratory Results WBC 7.93 10^3/uL (3.29-11.43) 05/06/23 16:25 RBC 4.76 10^6/uL (3.85-5.65) 05/06/23 16:25 Hgb 13.90 g/dL (11.27-16.99) 05/06/23 16:25 Hct 43.0 % (36-47) 05/06/23 16:25 MCV 90.3 fl (85-98) 05/06/23 16:25 MCH 29.2 pg (27-33) 05/06/23 16:25 MCHC 32.3 g/dL (30-55) 05/06/23 16:25 RDW 13.2 % (12.1-15.1) 05/06/23 16:25 Plt Count 206 10^3/cmm (157-399) 05/06/23 16:25 MPV 10.6 fL (7.4-10.4) H 05/06/23 16:25 Neut % (Auto) 57.8 % 05/06/23 16:25 Lymph % (Auto) 35.1 % 05/06/23 16:25 Erath % (Auto) 5.0 % 05/06/23 16:25 Eos % (Auto) 1.5 % 05/06/23 16:25 Baso % (Auto) 0.5 % 05/06/23 16:25 Neut # (Auto) 4.58 10^3/uL (1.8-7.7) 05/06/23 16:25 Lymph # (Auto) 2.8 10^3/uL (0.8-4.8) 05/06/23 16:25 Erath # (Auto) 0.4 10^3/uL (0.2-0.9) 05/06/23 16:25 Eos # (Auto) 0.1 10^3/uL (0.0-0.8) 05/06/23 16:25 Baso # (Auto) 0.0 10^3/uL (0.0-0.1) 05/06/23 16:25 Nucleated RBC % (auto) 0 % 05/06/23 16:25 Nucleated RBCs # 0.0 /100WBC 05/06/23 16:25 Sodium 140 mmol/L (136-145) 05/06/23 16:25 Potassium 4.1 mmol/L (3.5-5.1) 05/06/23 16:25 Chloride 102 mmol/L (98-107) 05/06/23 16:25 Carbon Dioxide 25 mmol/L (22-29) 05/06/23 16:25 Anion Gap 17.1 (5-19) 05/06/23 16:25 BUN 16 mg/dL (6-20) 05/06/23 16:25 Creatinine 0.7 mg/dL (0.5-0.9) 05/06/23 16:25 GFR Calculation 85.9 mL/min (90-130) L 05/06/23 16:25 Glucose 100 mg/dL (65-115) 05/06/23 16:25 Calculated Osmolality 291 mOsm/kg (285-295) 05/06/23 16:25 Calcium 9.2 mg/dL (8.5-10.5) 05/06/23 16:25 Total Bilirubin 0.3 mg/dL (0.15-1.2) 05/06/23 16:25 AST 20 U/L (0-32) 05/06/23 16:25 ALT 27 U/L (0-33) 05/06/23 16:25 Alkaline Phosphatase 128 U/L (35-105) H 05/06/23 16:25 Troponin T Baseline < 6 ng/L (0-10) 05/06/23 16:25 Total Protein 7.2 g/dL (6.6-8.7) 05/06/23 16:25 Albumin 4.2 g/dL (3.5-5.2) 05/06/23 16:25 Globulin 3.0 g/dL (1.3-4.6) 05/06/23 16:25 All radiology interpretation(s) finalized by discharge Discharge Plan Discharge Patient Disposition: Home Clinical Impression: Atypical chest pain Condition: Stable Prescriptions: No Action clobetasol 0.05 % ointment 1 applic TOPICAL BID Qty: 60 1RF Rx Instructions: Apply to areas on hands and feet BID for 3 weeks then 1 week off and then 2 weeks until follow-up clotrimazole 1 % ointment 1 applic topical BID 14 Days Qty: 56.7 1RF cetirizine [All Day Allergy (cetirizine)] 10 mg tablet 10 mg PO DAILY Qty: 90 3RF Victoza 2-Damián 0.6 mg/0.1 mL (18 mg/3 mL) pen injector 1.8 mg SUBCUT DAILY Qty: 9 11RF (DME) blood-glucose meter [ZenytimeTouch Ultra2 Meter] Kit See Rx Instructions .ROUTE .MEDSUPPLY Qty: 1 0RF Rx Instructions: daily albuterol sulfate 90 mcg/actuation HFA aerosol inhaler 2 inh inhalation Q4H PRN (Reason: shortness of breath or wheezing) Qty: 8.5 1RF Anoro Ellipta 62.5-25 mcg/actuation blister with device 1 inh inhalation DAILY Qty: 60 3RF (DME) OneTouch Ultra Test Strip See Rx Instructions .ROUTE .COMPLEX Qty: 100 3RF Dose Instruction: USE TO CHECK BLOOD SUGAR TWICE A DAY Rx Instructions: USE TO CHECK BLOOD SUGAR TWICE A DAY (DME) lancets [ZenytimeTouch Delica Plus Lancet] 33 gauge misc See Rx Instructions .ROUTE .COMPLEX Qty: 100 2RF Dose Instruction: USE DIRECTED Rx Instructions: USE DIRECTED (DME) lancets [OneTouch Delica Plus Lancet] 30 gauge misc See Rx Instructions .ROUTE .COMPLEX Qty: 200 0RF Dose Instruction: USE DIRECTED Rx Instructions: USE DIRECTED meloxicam 15 mg tablet See Rx Instructions .ROUTE .COMPLEX Qty: 30 0RF Dose Instruction: TAKE ONE TABLET BY MOUTH DAILY Rx Instructions: TAKE ONE TABLET BY MOUTH DAILY (DME) pen needle, diabetic [TechLITE Pen Needle] 31 gauge x 3/16 needle See Rx Instructions .ROUTE .COMPLEX Qty: 100 0RF Dose Instruction: USE DIRECTED Rx Instructions: USE DIRECTED Januvia 50 mg tablet See Rx Instructions .ROUTE .COMPLEX Qty: 90 3RF Dose Instruction: TAKE ONE TABLET BY MOUTH ONCE DAILY Rx Instructions: TAKE ONE TABLET BY MOUTH ONCE DAILY Discharge Orders: Discharge ED (Routine); Ordered 05/06/23 Ordered By: Maldonado Oliver Referrals: Noa Christine NP [Primary Care Provider] - Discharge Diet: Usual diet Discharge Activity: Increase activity as tolerated Patient Instructions: Chest Pain (ED) Activity Restrictions/Additional Instructions: Please follow-up with your primary care provider early next week as discussed to arrange for further cardiac workup. Follow-up with cardiology. Please return if you develop any recurring chest pain or other concerning symptoms you may have. Sign Out Sign Out Data: Patient Sign Out occurred on 05/06/23 at 17:02. Patient's care was discussed, and care was transferred from ANN Lyn to ANN Tao. Coding Level of Care Code ED Communications Writer for Hayden Sebastian
[2023-05-06 16:32] LABS: Basophils % 0.5 %; Eosinophils # 0.1 10^3/uL (0.0-0.8); Eosinophils % 1.5 %; Lymphocytes # 2.8 10^3/uL (0.8-4.8); Lymphocytes % 35.1 %; Mean Corpuscular HGB Conc 32.3 g/dL (30-55); Mean Corpuscular Hemoglobin 29.2 pg (27-33); Mean Corpuscular Volume 90.3 fl (85-98); Mean Platelet Volume 10.6 fL (7.4-10.4); Monocytes # 0.4 10^3/uL (0.2-0.9); Neutrophils # 4.58 10^3/uL (1.8-7.7); Neutrophils % 57.8 %; Nucleated Red Blood Cells % 0 %; Platelet Count 206 10^3/cmm (157-399); Red Blood Count 4.76 10^6/uL (3.85-5.65); Red Cell Distribution Width 13.2 % (12.1-15.1); White Blood Count 7.93 10^3/uL (3.29-11.43)
[2023-05-06 17:00] VITALS: BP 131/79; PULSE 60; RESP 18; O2SAT 99
[2023-05-06 17:11] LABS: Troponin(5th) Baseline < 6 ng/L (0-10)
[2023-05-06 17:13] LABS: Alanine Aminotransferase 27 U/L (0-33); Albumin Level 4.2 g/dL (3.5-5.2); Alkaline Phosphatase 128 U/L (35-105); Anion Gap 17.1 (5-19); Aspartate Amino Transferase 20 U/L (0-32); Blood Urea Nitrogen 16 mg/dL (6-20); Calcium 9.2 mg/dL (8.5-10.5); Carbon Dioxide 25 mmol/L (22-29); Chloride 102 mmol/L (98-107); Creatinine Clr Calc Pharmacy 119.7197; Glomerular Filtration Rate 85.9 mL/min (90-130); Glucose 100 mg/dL (65-115); Osmolality Calculated 291 mOsm/kg (285-295); Potassium 4.1 mmol/L (3.5-5.1); Sodium 140 mmol/L (136-145); Total Bilirubin 0.3 mg/dL (0.15-1.2); Total Protein 7.2 g/dL (6.6-8.7)
--- NOTE | 2023-05-09 07:08 | DCPLANNER ---
A message was sent to heart care on 05/09/23 at 0708. [facility] to contact patient for appt.
== END 2023-05-06 17:36 | disposition home or self-care (01) ==
PROVIDERS: Physician Assistant; Emergency Provider Physician Assistant; PCP Nurse Practitioner Family
DX: R07.89 Other chest pain (principal); E11.9 Type 2 diabetes mellitus without complications; F17.210 Nicotine dependence, cigarettes, uncomplicated
CPT/HCPCS: 36415; 71045; 80053; 84484; 85025; 93005; 99285

== ENCOUNTER 2023-05-31 11:52 | Outpatient (CLI) | payer MEDICAID, SELFPAY ==
--- NOTE | 2023-05-31 | ECG_ITS ---
[facility] Test Date: 2023-05-31 Pat Name: Alaina Aguirre Department: Room: Gender: Female [employer] Work[employer]: Alessnadra HanleyTam : 1965 Requested By: Noa Christine Order Number: [id number] Little MD: Jorgito Blake M.D. Interpretive Statements NAME OF STUDY: TREADMILL STRESS TEST INDICATION: [Chest Pain] EXERCISE DATA: The patient was exercised by Mikey protocol. Baseline heart rate was 68 beats per minute. Baseline blood pressure was 149/76 millimeters of mercury. Maximal predicted heart rate was 162 beats per minute. Maximum heart rate achieved was 139 which was 85% of the maximum predicted heart rate. Maximum blood pressure was 246/76 millimeters of mercury. Total exercise time was 6 minutes and 26 seconds. Maximum METs achieved was 10.2. The reason for ending the test was completion of protocol. The patient complained of shortness of breath during the stress test, which then resolved at the end of the test. ELECTROCARDIOGRAM: BASELINE: Showed sinus rhythm, normal axis, no significant ST-T changes at the baseline noted. [] EXERCISE: At the peak exercise level, [] No significant ST-T changes suggestive of ischemia noted. [] RECOVERY: During the recovery period, heart rate dropped appropriately. No significant ST-T changes in the recovery suggestive of ischemia noted. CONCLUSION: 1. Exercise capacity is good. 2. Heart rate response was appropriate. 3. Blood pressure response was hypertensive. 4. Symptoms not suggestive of ischemia. 5. Stress test does not show ischemia. Electronically Signed On 06-16-2023 7:01:54 CDT by Jorgito Blake M.D. [email or web address]
[2023-05-31 11:56] VITALS: BMI 33.7
[2023-05-31 12:27] VITALS: BP 160/59; PULSE 76
== END 2023-05-31 11:53 | disposition home or self-care (01) ==
LOC: CDL 11:53
PROVIDERS: PCP Nurse Practitioner Family; Visit Provider Nurse Practitioner Family
DX: R07.9 Chest pain, unspecified (principal)
CPT/HCPCS: 93017

== ENCOUNTER → 2023-06-07 10:14 | Outpatient (BNVA) | payer MEDICAID, SELFPAY | PROVIDERS: PCP Nurse Practitioner Family; Visit Provider Nurse Practitioner Family | DX: E11.40 Type 2 diabetes mellitus with diabetic neuropathy, unspecified (principal); R03.0 Elevated blood-pressure reading, without diagnosis of hypertension | CPT/HCPCS: 80061 ==

== ENCOUNTER → 2023-10-14 09:37 | Outpatient (BNVA) | payer MEDICAID, SELFPAY | PROVIDERS: PCP Nurse Practitioner Family; Visit Provider Nurse Practitioner Family | DX: E11.40 Type 2 diabetes mellitus with diabetic neuropathy, unspecified (principal) | CPT/HCPCS: 83036 ==

== ENCOUNTER → 2024-02-06 10:30 | Outpatient (BNVA) | payer MEDICAID, SELFPAY | PROVIDERS: PCP Nurse Practitioner Family; Visit Provider Nurse Practitioner Family | DX: E11.40 Type 2 diabetes mellitus with diabetic neuropathy, unspecified (principal) | CPT/HCPCS: 80053; 80061; 82043; 83036 ==

== ENCOUNTER 2024-02-15 10:14 | Outpatient (CLI) | payer MEDICAID, SELFPAY ==
--- NOTE | 2024-02-15 10:20 | MM_ITS ---
WS: [id number] BILATERAL 3D TOMOSYNTHESIS DIGITAL SCREENING MAMMOGRAPHY WITH CAD CLINICAL INFORMATION: SCREENING HISTORY: Screening mammogram. No current complaints. COMPARISON: 2022 TECHNIQUE: Bilateral CC and MLO views. FINDINGS: Scattered fibroglandular densities bilaterally. No suspicious focal mass, asymmetry, calcifications, or architectural distortion. No evidence of malignancy. Punctate and lucent centered calcifications. MM/MM scr tomosynthesis [id number] IMPRESSION: DENSITY: There are scattered areas of fibroglandular density. BI-RADS: 2 - Benign. FOLLOW UP: 1 Year Follow-up Recommend return to annual screening mammography.
== END 2024-02-15 10:15 | disposition home or self-care (01) ==
LOC: MOBLMAM 10:17
PROVIDERS: PCP Nurse Practitioner Family; Visit Provider Nurse Practitioner Family
DX: Z12.31 Encounter for screening mammogram for malignant neoplasm of breast (principal); R92.323 Mammographic fibroglandular density, bilateral breasts; R92.1 Mammographic calcification found on diagnostic imaging of breast
CPT/HCPCS: 77063; 77067

== ENCOUNTER → 2024-05-07 09:08 | Outpatient (BNVA) | payer MEDICAID, SELFPAY | PROVIDERS: PCP Nurse Practitioner Family; Visit Provider Nurse Practitioner Family | DX: E11.40 Type 2 diabetes mellitus with diabetic neuropathy, unspecified (principal) | CPT/HCPCS: 83036 ==

== ENCOUNTER → 2024-08-10 13:00 | Outpatient (BNVA) | payer MEDICAID, SELFPAY | PROVIDERS: PCP Nurse Practitioner Family; Visit Provider Nurse Practitioner Family | DX: I10 Essential (primary) hypertension (principal); E11.40 Type 2 diabetes mellitus with diabetic neuropathy, unspecified | CPT/HCPCS: 80053; 80061; 83036; 85025 ==

== ENCOUNTER → 2024-11-06 08:45 | Outpatient (BNVA) | payer MEDICAID, SELFPAY | PROVIDERS: PCP Nurse Practitioner Family; Visit Provider Nurse Practitioner Family | DX: E11.9 Type 2 diabetes mellitus without complications (principal) | CPT/HCPCS: 83036 ==

== ENCOUNTER 2024-11-30 11:30 | Outpatient (CLI) | payer MEDICAID, SELFPAY ==
--- NOTE | 2024-11-30 11:40 | XR_ITS ---
WS: [id number] XR cervical spine 3V* [id number] REASON FOR EXAM: M54.2 - Cervicalgia FINDINGS: Mild straightening of the normal lordosis of the cervical spine. No significant compression deformity or focal lesion of the cervical vertebrae. Moderate narrowing of the disc spaces C5-C7. Mild endplate sclerosis and posterior osteophytosis with large anterior osteophytosis C5-C7. Normal facet joint alignment with minimal degenerative arthropathy. No significant listhesis. XR/XR cervical spine 3V* [id number] IMPRESSION: Cervical degenerative spondylosis as above.
--- NOTE | 2024-11-30 11:40 | XR_ITS ---
WS: [email or web address] XR shoulder RT min 2V* [id number] REASON FOR EXAM: M25.511 - Pain in right shoulder FINDINGS: No fracture or focal bone lesion. Mild narrowing of the acromioclavicular joint space with mild subchondral sclerosis and osteophytosis. Mild lateral downward slant of the acromial process. Glenohumeral joint space not well demonstrated but likely mildly narrowed. Mild subchondral sclerosis of the glenoid. Minimal osteophytosis of the humeral head. Minimal to mild sclerosis and cystic change in the greater biceps tuberosity. XR/XR shoulder RT min 2V* [id number] IMPRESSION: Mild osteoarthritis in the acromioclavicular joint. Mild osteoarthritis in the glenohumeral joint. Minimal to mild rotator cuff tendon arthropathy with mild lateral downward slan t of the acromial process.
--- NOTE | 2024-11-30 11:40 | XR_ITS ---
WS: [email or web address] XR lumbar spine 2-3V* [id number] REASON FOR EXAM: M54.50 - Low back pain, unspecified FINDINGS: 6 lumbar vertebrae. L1 transitional vertebrae. Mild lower rotatory levoscoliosis. Relatively normal lordosis. No significant compression deformity or focal bone lesion. Disc spaces are intact and relatively well preserved with mild narrowing at L5-S1. Mild endplate sclerosis and osteophytosis L1-L6. No spondylolysis. No significant spondylolisthesis. XR/XR lumbar spine 2-3V* [id number] IMPRESSION: Lumbar degenerative spondylosis as above.
--- NOTE | 2024-11-30 11:40 | XR_ITS ---
WS: [email or web address] XR shoulder LT min 2V* [id number] REASON FOR EXAM: M25.512 - Pain in left shoulder FINDINGS: No fracture or focal bone lesion. Mild narrowing of the acromioclavicular joint with mild subchondral sclerosis and osteophytosis. Glenohumeral joint space is not well demonstrated, likely mildly narrowed. Moderate subchondral sclerosis of the glenoid with mild osteophytosis of the humeral head. Mild sclerosis in the greater tuberosity. XR/XR shoulder LT min 2V* [id number] IMPRESSION: Mild osteoarthritis of the acromioclavicular joint. Mild to moderate osteoarthritis of the glenohumeral joint. Mild rotator cuff tendon arthropathy.
== END 2024-11-30 11:31 | disposition home or self-care (01) ==
PROVIDERS: PCP Nurse Practitioner Family; Visit Provider Nurse Practitioner Family
DX: M19.012 Primary osteoarthritis, left shoulder (principal); M19.011 Primary osteoarthritis, right shoulder; M47.812 Spondylosis without myelopathy or radiculopathy, cervical region; M47.816 Spondylosis without myelopathy or radiculopathy, lumbar region; M25.712 Osteophyte, left shoulder; M25.711 Osteophyte, right shoulder
CPT/HCPCS: 72040; 72100; 73030

== ENCOUNTER → 2024-12-25 15:02 | Outpatient (BNVA) | payer MEDICAID, SELFPAY | PROVIDERS: PCP Nurse Practitioner Family; Visit Provider Orthopaedic Surgery | DX: M47.812 Spondylosis without myelopathy or radiculopathy, cervical region (principal); M51.360 Other intervertebral disc degeneration, lumbar region with discogenic back pain only | CPT/HCPCS: 72050; 72110; 99203 ==

== ENCOUNTER → 2025-02-05 08:45 | Outpatient (BNVA) | payer MEDICAID, SELFPAY | PROVIDERS: PCP Nurse Practitioner Family; Visit Provider Nurse Practitioner Family | DX: I10 Essential (primary) hypertension (principal); E11.9 Type 2 diabetes mellitus without complications | CPT/HCPCS: 80053; 80061; 82043; 83036 ==